=== PATIENT | female | born 1930 | race Caucasian/White ===

== ENCOUNTER → 2016-10-13 16:48 | Outpatient (CLI) | payer MEDICARE, OTHER ==
[2009-11-07 09:43] VITALS: BMI 25.2
== END | disposition home or self-care (01) ==
LOC: D.MAMMO 15:30
DX: Z12.31 Encounter for screening mammogram for malignant neoplasm of breast (principal)

== ENCOUNTER 2017-10-21 06:47 | Outpatient (CLI) | payer MEDICARE, OTHER ==
[~2017-10-21] VITALS: Ht 157.5 cm; Wt 57.7 kg
[2017-10-21] MEDS ORDERED: ALEVE220 MG PO (08:05)
[2017-10-21] MEDS ORDERED: NORVASC10 MG PO (08:05)
[2017-10-21] MEDS ORDERED: BENADRYL25 MG PO (08:06)
[2017-10-21] MEDS ORDERED: ASPIRIN325 MG PO (08:06)
[2017-10-21] MEDS ORDERED: CENTRUM COMPLE1 EACH PO (08:07)
[2017-10-21] MEDS ORDERED: CRANBERRY 400 M1 TA1 PO (08:09)
[2017-10-21] MEDS ORDERED: FOLATE0.4 MG PO (08:09)
[2017-10-21] MEDS ORDERED: GLIMEPIRIDE2 MG PO (08:10)
[2017-10-21] MEDS ORDERED: CO Q-1030 MG PO (08:10)
[2017-10-21] MEDS ORDERED: HCTZ25 MG PO (08:11)
[2017-10-21] MEDS ORDERED: TIROSINT25 MCG PO (08:12)
[2017-10-21] MEDS ORDERED: PRINIVIL20 MG PO (08:12)
[2017-10-21 08:13] LABS: BASOPHILS 0.3 % (0-2); EOSINOPHILS 0.7 % (0-7); HEMATOCRIT 37.4 % (36.0-48.0); LYMPHOCYTES 29.9 % (15-50); MCH 33.8 pg (26.0-34.0); MCHC 37.4 g/dL (31.0-37.0); MCV 90.3 fL (80.0-100.0); MEAN PLATELET VOLUME 9.7 fL (7.4-10.4); MONOCYTES 12.1 % (2-11); PLATELET COUNT 206 10x3/uL (130-400); RBC 4.14 10x6/uL (4.00-5.40)
[2017-10-21 08:21] VITALS: BP 124/73; Ht 157.5 cm; Wt 57.7 kg
[2017-10-21 08:29] LABS: CALC OSMOLALITY 274 mosm/kg (275-300); CALCIUM 10.4 mg/dL (8.5-10.1); CARBON DIOXIDE 26.7 mmol/L (21.0-32.0); CHLORIDE - SERUM 101 mmol/L (98-107); CREATININE - SERUM 0.7 mg/dL (0.6-1.3); GLUCOSE 142 mg/dL (74-106); POTASSIUM - SERUM 3.6 mmol/L (3.5-5.1); SODIUM 136 mmol/L (136-145); UREA NITROGEN 15 mg/dL (7-18); eGFR NON AFRICAN AMERICAN 84 mL/min (90-120)
[2017-10-21 08:37] LABS: APTT 29.7 SECONDS (22.8-39.4); INR 1.01 (0.85-1.17); PROTIME 12.9 SECONDS (11.6-15.0)
== END 2017-10-21 12:20 | disposition home or self-care (01) ==
LOC: D.SP 06:47
PROVIDERS: Specialist
DX: D47.2 Monoclonal gammopathy (principal); I10 Essential (primary) hypertension; E11.9 Type 2 diabetes mellitus without complications; R89.9 Unspecified abnormal finding in specimens from other organs, systems and tissues; Z01.812 Encounter for preprocedural laboratory examination